=== PATIENT | male | born 1930 | race Caucasian/White ===

== ENCOUNTER 2018-09-12 16:47 | Inpatient (IN) | payer MEDICARE, OTHER ==
[2018-09-12] MEDS: SOD CHLORIDE 0.9% 0 ML IV (07:00)
[2018-09-12 21:00] LABS: ADD MAN DIFF? NO
[2018-09-12] MEDS ORDERED: ONDANSETRON 4 MG INJ IV ×2 (21:00→22:00)
[2018-09-12 21:02] LABS: ABNORMAL IP MESSAGE 1; BASOPHIL # 0.1 10^3/ul (0.0-0.1); BASOPHILS % 0.3 % (0.0-2.0); HEMATOCRIT 36.6 % (42.0-52.0); HEMOGLOBIN 11.6 g/dl (14.0-18.0); LYMPHOCYTES % 4.5 % (15.0-51.0); MEAN CORPUSCULAR HEMOGLOBIN 32.2 pg (29.0-33.0); MEAN CORPUSCULAR HGB CONC 31.7 g/dl (32.0-37.0); MEAN CORPUSCULAR VOLUME 101.7 fl (82.0-101.0); MEAN PLATELET VOLUME 11.6 fl (7.4-10.4); MONOCYTE # 1.3 10^3/ul (0.3-0.9); MONOCYTES % 5.6 % (0.0-11.0); NEUTROPHIL # 20.6 10^3/ul (1.6-7.5); NEUTROPHILS % 88.9 % (39.0-77.0); PLATELET COUNT 179 10^3/UL (140-415); POSITIVE DIFF @See below; RED CELL DISTRIBUTION WIDTH 12.7 % (11.5-14.5)
[2018-09-12 21:02] LABS: WHITE BLOOD COUNT 23.2 10^3/ul (4.8-10.8)
[2018-09-12 21:18] LABS: ALANINE AMINOTRANSFERASE 23 IU/L (13-69); ALBUMIN 4.5 g/dl (3.3-4.9); ALBUMIN/GLOBULIN RATIO 1.18; ALKALINE PHOSPHATASE 66 IU/L (42-121); ANION GAP 15 (5-13); ASPARTATE AMINO TRANSFERASE 34 IU/L (15-46); BILIRUBIN,INDIRECT 0.6 mg/dl (0-1.1); BILIRUBIN,TOTAL 0.6 mg/dl (0.2-1.3); BLOOD UREA NITROGEN 25 mg/dl (7-20); CALCIUM 9.3 mg/dl (8.4-10.2); CARBON DIOXIDE 24 mmol/L (21-31); CHLORIDE 104 mmol/L (97-110); CREATININE 1.88 mg/dl (0.61-1.24); GLUCOSE 164 mg/dl (70-220); POTASSIUM 5.5 mmol/L (3.5-5.1); SODIUM 143 mmol/L (135-144); TOTAL PROTEIN 8.3 g/dl (6.1-8.1)
[2018-09-12] MEDS: SOD CHLORIDE 0.9% 1,000 ML IV ×2 (21:21→22:41)
[2018-09-12] MEDS ORDERED: ALBUTEROL HFA 8 GM INHALER INH (22:00)
[2018-09-12] MEDS ORDERED: HYDROCODONE/APAP (5/325) TAB PO ×2 (22:00)
[2018-09-12] MEDS ORDERED: ACETAMINOPHEN 650MG/20.3ML CUP PO (22:00)
[2018-09-12] MEDS ORDERED: NORepinephrine 8MG/250 ML (PMX 250 ML IV (22:00)
[2018-09-12] MEDS ORDERED: VANCOMYCIN IV PER PHARMACY XX (22:00)
[2018-09-12] MEDS ORDERED: IPRATROPIUM (HFA) 12.9 GM INHALER INH (22:00)
[2018-09-12] MEDS: CEFEPIME 1GM/50 ML (PMX) 50 ML IVPB (22:40)
[2018-09-12 23:52] LABS: ADD MAN DIFF? NO
[2018-09-12 23:54] LABS: ABNORMAL IP MESSAGE 1; BASOPHIL # 0.1 10^3/ul (0.0-0.1); BASOPHILS % 0.3 % (0.0-2.0); HEMATOCRIT 30.6 % (42.0-52.0); HEMOGLOBIN 9.7 g/dl (14.0-18.0); LYMPHOCYTES # 0.7 10^3/ul (0.8-2.9); LYMPHOCYTES % 2.6 % (15.0-51.0); MEAN CORPUSCULAR HEMOGLOBIN 31.6 pg (29.0-33.0); MEAN CORPUSCULAR HGB CONC 31.7 g/dl (32.0-37.0); MEAN CORPUSCULAR VOLUME 99.7 fl (82.0-101.0); MEAN PLATELET VOLUME 11.7 fl (7.4-10.4); MONOCYTE # 1.8 10^3/ul (0.3-0.9); MONOCYTES % 7.3 % (0.0-11.0); NEUTROPHIL # 21.8 10^3/ul (1.6-7.5); NEUTROPHILS % 88.7 % (39.0-77.0); PLATELET COUNT 147 10^3/UL (140-415); POSITIVE DIFF @See below; RED BLOOD COUNT 3.07 10^6/ul (4.70-6.10); RED CELL DISTRIBUTION WIDTH 12.8 % (11.5-14.5)
[2018-09-12 23:54] LABS: WHITE BLOOD COUNT 24.6 10^3/ul (4.8-10.8)
[2018-09-13] MEDS: DEXTROSE 5%-0.45% NACL 1,000 ML IV ×3 (00:06→18:00)
[2018-09-13 00:10] LABS: LIPASE 107 U/L (23-300)
[2018-09-13 00:15] LABS: INR 1.06; PROTIME 13.9 Sec (11.9-14.9); PT RATIO 1.1
[2018-09-13 01:28] LABS: ALANINE AMINOTRANSFERASE 25 IU/L (13-69); ALBUMIN 3.2 g/dl (3.3-4.9); ALBUMIN/GLOBULIN RATIO 1.06; ALKALINE PHOSPHATASE 52 IU/L (42-121); ANION GAP 9 (5-13); ASPARTATE AMINO TRANSFERASE 24 IU/L (15-46); BILIRUBIN,INDIRECT 0.7 mg/dl (0-1.1); BILIRUBIN,TOTAL 0.7 mg/dl (0.2-1.3); BLOOD UREA NITROGEN 24 mg/dl (7-20); CALCIUM 7.8 mg/dl (8.4-10.2); CARBON DIOXIDE 23 mmol/L (21-31); CHLORIDE 108 mmol/L (97-110); CREATININE 1.76 mg/dl (0.61-1.24); GLUCOSE 379 mg/dl (70-220); POTASSIUM 4.9 mmol/L (3.5-5.1); SODIUM 140 mmol/L (135-144); TOTAL PROTEIN 6.2 g/dl (6.1-8.1)
[2018-09-13] MEDS ORDERED: CEFEPIME 1GM/50 ML (PMX) 50 ML IVPB ×2 (02:00→22:00)
[2018-09-13 02:09] LABS: IMMEDIATE SPIN CROSSMATCH 1 2
[2018-09-13] MEDS: ACETAMINOPHEN 325 MG TAB PO (02:44)
[2018-09-13] MEDS ORDERED: VANCOMYCIN HCL 1.5 GM in SOD CHLORIDE 0.9% 250 ML IVPB (03:00)
[2018-09-13] MEDS: VANCOMYCIN HCL 1.5 GM in SOD CHLORIDE 0.9% 250 ML IVPB (07:13)
[2018-09-14] MEDS: DEXTROSE 5%-0.45% NACL 1,000 ML IV (04:05)
[2018-09-14] MEDS ORDERED: VANCOMYCIN 750 MG (PMX) 250 ML IVPB (06:00)
[2018-09-14 07:21] LABS: ADD MAN DIFF? NO
[2018-09-14 07:27] LABS: BASOPHILS % 0.3 % (0.0-2.0); EOSINOPHILS # 0.1 10^3/ul (0.0-0.5); EOSINOPHILS % 0.8 % (0.0-7.0); HEMATOCRIT 27.5 % (42.0-52.0); HEMOGLOBIN 8.7 g/dl (14.0-18.0); LYMPHOCYTES # 1.9 10^3/ul (0.8-2.9); LYMPHOCYTES % 16.2 % (15.0-51.0); MEAN CORPUSCULAR HEMOGLOBIN 32.2 pg (29.0-33.0); MEAN CORPUSCULAR HGB CONC 31.6 g/dl (32.0-37.0); MEAN CORPUSCULAR VOLUME 101.9 fl (82.0-101.0); MEAN PLATELET VOLUME 12.1 fl (7.4-10.4); MONOCYTE # 1.2 10^3/ul (0.3-0.9); MONOCYTES % 10.2 % (0.0-11.0); NEUTROPHIL # 8.2 10^3/ul (1.6-7.5); NEUTROPHILS % 72.1 % (39.0-77.0); PLATELET COUNT 128 10^3/UL (140-415); RED CELL DISTRIBUTION WIDTH 13.3 % (11.5-14.5)
[2018-09-14 07:27] LABS: WHITE BLOOD COUNT 11.4 10^3/ul (4.8-10.8)
[2018-09-14 08:06] LABS: ANION GAP 8 (5-13); BLOOD UREA NITROGEN 36 mg/dl (7-20); CALCIUM 8.2 mg/dl (8.4-10.2); CARBON DIOXIDE 24 mmol/L (21-31); CHLORIDE 113 mmol/L (97-110); CREATININE 2.33 mg/dl (0.61-1.24); GLUCOSE 122 mg/dl (70-220); POTASSIUM 4.7 mmol/L (3.5-5.1); SODIUM 145 mmol/L (135-144)
[2018-09-14] MEDS ORDERED: VANCOMYCIN 1 GM 250 ML IVPB (18:00)
[2018-09-14] MEDS: HYDROmorphONE 0.5 MG/0.5 ML SYG IV (18:00)
[2018-09-15 06:24] LABS: ADD MAN DIFF? NO
[2018-09-15 06:32] LABS: ABNORMAL IP MESSAGE 1; BASOPHILS % 0.3 % (0.0-2.0); EOSINOPHILS # 0.1 10^3/ul (0.0-0.5); EOSINOPHILS % 0.4 % (0.0-7.0); HEMATOCRIT 27.2 % (42.0-52.0); HEMOGLOBIN 8.8 g/dl (14.0-18.0); LYMPHOCYTES # 2.8 10^3/ul (0.8-2.9); MEAN CORPUSCULAR HEMOGLOBIN 32.2 pg (29.0-33.0); MEAN CORPUSCULAR HGB CONC 32.4 g/dl (32.0-37.0); MEAN CORPUSCULAR VOLUME 99.6 fl (82.0-101.0); MEAN PLATELET VOLUME 12.3 fl (7.4-10.4); MONOCYTE # 1.6 10^3/ul (0.3-0.9); MONOCYTES % 11.2 % (0.0-11.0); NEUTROPHIL # 9.4 10^3/ul (1.6-7.5); NEUTROPHILS % 67.5 % (39.0-77.0); POSITIVE DIFF @See below; RED BLOOD COUNT 2.73 10^6/ul (4.70-6.10); RED CELL DISTRIBUTION WIDTH 13.1 % (11.5-14.5)
[2018-09-15 06:40] LABS: PLATELET COUNT 118 10^3/UL (140-415)
== END 2018-09-15 20:09 | disposition home health service (06) | DRG 699 ==
LOC: PP2 09-14 → E/R 16:47 → 6WM 20:39 → 5EC 09-13 23:45
PROC: 30233N1 Transfusion of Nonautologous Red Blood Cells into Peripheral Vein, Percutaneous Approach (ICD-10-PCS; 2018-09-13)
PROC: 0PSQXZZ Reposition Left Metacarpal, External Approach (ICD-10-PCS; principal; 2018-09-14)
DX: S37.012A Minor contusion of left kidney, initial encounter (principal); N17.9 Acute kidney failure, unspecified; W19.XXXA Unspecified fall, initial encounter; S62.603A Fracture of unspecified phalanx of left middle finger, initial encounter for closed fracture; S62.605A Fracture of unspecified phalanx of left ring finger, initial encounter for closed fracture; G30.9 Alzheimer's disease, unspecified; F02.80 Dementia in other diseases classified elsewhere, unspecified severity, without behavioral disturbance, psychotic disturbance, mood disturbance, and anxiety; N18.9 Chronic kidney disease, unspecified; Z66 Do not resuscitate
CPT/HCPCS: 36415; 36430; 70450; 71045; 71250; 72125; 72170; 73130-LT; 74176; 80048; 80053; 83690; 85025; 85610; 86850; 86900; 86901; 86920; 87040; 93005; 97116; 97162; 97530; 99291-25; G0378